=== PATIENT | female | born 2000 | race Caucasian/White ===

== ENCOUNTER 2023-02-15 17:36 | Emergency (ER) | payer BC ==
[~2023-02-15] VITALS: Ht 157.5 cm; Wt 56.7 kg
[2023-02-15] MEDS ORDERED: ACETAMINOPHEN ES 500 MG TABLET ONE (18:25)
[2023-02-15] MEDS ORDERED: ACETAMINOPHEN ES 500 MG TABLET PO ONE (18:30)
[2023-02-15] MEDS ORDERED: IBUP-1953 PO (19:03)
[2023-02-15 19:37] VITALS: BP 115/60; TEMP 98.4; O2SAT 100
== END 2023-02-15 19:30 | disposition home or self-care (01) ==
LOC: ER 18:09
DX: S82.62XA Displaced fracture of lateral malleolus of left fibula, initial encounter for closed fracture (principal); Z79.899 Other long term (current) drug therapy; Z60.2 Problems related to living alone; V09.9XXA Pedestrian injured in unspecified transport accident, initial encounter; Y93.89 Activity, other specified; Y92.481 Parking lot as the place of occurrence of the external cause; Y99.8 Other external cause status
CPT/HCPCS: 73610-TC; 73630-TC